=== PATIENT | female | born 1970 | race African-American/Black ===

== ENCOUNTER 2016-06-02 13:01 | Inpatient (IN) ==
--- NOTE | 2016-06-02 16:14 | Emergency Department Note ---
Arrival - Arrival Chief Complaint: Shortness of Breath Stated Complaint: Chest Pain,SOB ED Nursing Triage Note: c/o having shortness of breath while at her aunts ., states she got hot and does not remeber what happen, denies eating anything today , + chest pain ., EKG obtained at time of triage Mode of Arrival: Wheelchair Limitations: No Limitations Source: Patient Time Seen by Provider: 06/02/16 16:02 - History of Present Illness HPI Narrative: The patient complains of having palpitations, chest pain, shortness of breath and syncope while at a earlier today. She was walking back to her car when she began to have palpitations and felt hot and weak. She was also seeing spots. She denies nausea or diaphoresis. She sat down in a chair and does not remember what happened next. At this time she feels back to normal except for a slight right parasternal chest pressure. The patient was seen at an immediate care clinic last week and diagnosed with a sinus infection. At that time she was noticed to have some type of cardiac abnormality. It is not clear whether she was having arrhythmia or murmur. She was to be set up to see cardiology but has not seen them yet. Date of Last Menstrual Period: 1 week ago Allergies/Adverse Reactions: Allergies Allergy/AdvReac Type Severity Reaction Status Date / Time No Known Allergies Allergy Unverified 06/02/16 13:05 Home Medications: Home Medications Medication Instructions Recorded Confirmed Type No Known Home Medications [No 06/02/16 06/02/16 History Known Home Medications] Review of System - Review of System 12 point system: reviewed and no additional remarkable complaints except as stated - Review of System Constitutional: Present: weakness. Absent: diaphoresis, fever Eyes: Present: vision change Head/Ears/Nose/Throat: Absent: nasal drainage, sore throat Respiratory: Absent: cough Cardiovascular: Present: chest pain, palpitations, dyspnea on exertion. Absent : orthopnea, edema Gastrointestinal: Absent: abdominal pain, nausea, vomiting Medical,Surgical,& Family Hx - Medical History Medical History: noncontributory - Surgical History Surgical History: noncontributory - Family History Family History: noncontributory - Social History Smoking Status: Never smoker Frequency of Alcohol Use: None Type of Drug Use: None Exam Physical Examination: GENERAL: Alert. No acute distress. HEENT: Normocephalic and atraumatic. There is no nasal drainage. No pharyngeal erythema or exudate. NECK: Normal inspection. Supple. No lymphadenopathy or meningismus. LUNGS: No respiratory distress. Clear to auscultation bilaterally, no wheezes, rales or rhonchi. HEART: Regular rate and rhythm. There is a 3/6 systolic murmur. ABDOMEN: Soft, nontender and nondistended with normoactive bowel sounds. BACK: Normal inspection. SKIN: Color normal. Warm and dry. EXTREMITIES: Nontender. Normal range of motion. No pedal edema. NEUROLOGICAL/PSYCHIATRIC: Alert and oriented -3 with normal mood and affect. Cranial nerves normal. No motor or sensory deficit. Vital Signs: Vital Signs Temperature 98.0 F 06/02/16 14:58 Pulse Rate 74 06/02/16 14:58 Respiratory Rate 16 06/02/16 14:58 Blood Pressure 129/69 06/02/16 14:58 O2 Sat by Pulse Oximetry 100 06/02/16 14:58 Course - Reevaluation(s) Reevaluation #1: The patient has remained stable here in the ER. I suspect her symptoms are mostly due to her anemia, however, she may have a cardiac factor as well. Her EKG shows an ectopic atrial rhythm and she does have a 3/6 murmur. The cause for her anemia is unknown. She has had this in the past. She does admit to a few dark stools last week but it is not clear whether this was melena or not. Her Hemoccult now is negative. She is going to need blood and cardiology consultation. Discussed the patient with the hospitalist service who will see her and admit. Time: 17:56 Results - Labs CBC & BMP: 06/02/16 16:38 06/02/16 16:38 Lab Results: I have reviewed the patients labs Labs: Laboratory Tests 06/02/16 06/02/16 06/02/16 16:38 16:38 16:38 INR 1.0 CK-MB (CK-2) < 1.0 Troponin I < 0.015 B-Natriuretic Peptide 56 - Impressions EKG shows an ectopic atrial rhythm at 90. Chest x-ray shows mild cardiomegaly. CT of the head shows no acute intracranial abnormality. Disposition Clinical Impression: Anemia, Syncope, Palpitations Case discussed with: patient, patient's family Disposition: Still a Patient Condition: Stable Time of Disposition: 17:59
[2016-06-02 16:45] LABS: Eosinophils # 0.1 10*3/uL (0.0-0.87); Eosinophils % 0.7 % (0.00-10.9); Hematocrit 18.2 VOL% (35.7-47.0); Immature Granulocytes % 0.5 %; Immature Granulocytes Absolute 0.05 #; Lymphocytes # 2.9 10*3/uL (1.4-4.0); Lymphocytes % 28.7 % (21.3-54.2); Mean Corpuscular HGB Conc 24.2 GM/DL (32-36); Mean Corpuscular Hemoglobin 14 PG (27-34); Mean Corpuscular Volume 56.9 FL (87-102); Monocytes # 0.7 10*3/uL (0.11-0.8); Monocytes % 7.4 % (1.7-12.7); NRBC # 0.02 10*3/uL; Neutrophils # 6.3 10*3/uL (1.4-7.4); Neutrophils % 62.7 % (38.7-73.9); Platelet Count 388 T/CUMM (130-400); Red Cell Distribution Width 23.3 % (9.3-17.3); White Blood Count 10.1 T/CUMM (4-12)
--- NOTE | 2016-06-02 16:52 | CT Report ---
History: Syncope Date: 06/02/2016 Study: CT head without contrast Comparison exam: No previous head CT available Transaxial CT sections were obtained through the head without IV contrast. Total DLP measures 1012.1 mGy*cm. This CT exam was performed using one or more the following dose reduction techniques: Automated exposure control, adjustment of the MA and/or KV according to patient size, or use of iterative reconstruction technique. The ventricles are midline in position without evidence of hydrocephalus. There is no mass or parenchymal hemorrhage. There is no gross CT evidence of acute cortical stroke. There is no extra-axial hematoma. There is no acute abnormality of the calvarium. The partially visualized paranasal sinuses and mastoid air cells are clear. Impression: Negative noncontrast CT brain PROCEDURE INTERPRETED AT [facility] Final Report Signed by: Dr. Adriane Gilbert
[2016-06-02 16:55] LABS: PT Patient Result 10.7 SECS; Partial Thromboplastin Time 21.1 SECS (0-40)
[2016-06-02 16:56] LABS: Hemoglobin 4.4 GM/DL (12.0-16.0)
[2016-06-02 17:12] LABS: Alanine Aminotransferase < 9 U/L (13-56); Albumin 3.6 G/DL (3.4-5.0); Alkaline Phosphatase 54 U/L (45-117); Aspartate Amino Transferase 7 U/L (0-37); Blood Urea Nitrogen 9 MG/DL (7-18); Calcium 8.5 MG/DL (8.5-10.1); Glucose 88 MG/DL (74-106); Osmolality,Calculated 278.3 MOS/KG (273-304); Potassium 3.8 MMOL/L (3.5-5.1); Sodium 141 MMOL/L (136-145); Total Protein 7.5 G/DL (6.4-8.3); Troponin I Only < 0.015 NG/ML (0.00-0.045)
--- NOTE | 2016-06-02 17:49 | XRay Report ---
History: Chest pain. Dyspnea Date: 06/02/2016 Study: Chest x-ray PA and lateral Comparison exam: No previous chest x-ray currently available There is mild cardiomegaly. There is no mediastinal mass. The pulmonary vasculature is not engorged. The lungs are well-expanded. There is no pleural effusion. There is no confluent infiltrate to suggest pneumonia. Osseous structures are unremarkable. Impression: Cardiomegaly without overt CHF. No definite acute process PROCEDURE INTERPRETED AT [facility]OLOG[facility] Final Report Signed by: Dr. Adriane Gilbert
[2016-06-02 18:16] LABS: Hypochromasia 3+; Platelet Estimate Normal
[2016-06-02 18:17] LABS: Microcytosis 3+; Target Cells Few
[2016-06-02 18:18] LABS: Tear Drop Cells Few
[2016-06-02 18:19] LABS: Ovalocytes Few
[2016-06-02] MEDS ORDERED: ACETAMINOPHEN 325 MG TABLET PO PRN ×2 (19:00)
[2016-06-02] MEDS ORDERED: ONDANSETRON 4 MG/2 ML VIAL IV PRN (19:00)
[2016-06-02] MEDS ORDERED: MORPHINE 2 MG/1 ML SYRINGE IV PRN (19:00)
[2016-06-02] MEDS ORDERED: DOCUSATE SODIUM 100 MG CAPSULE PO PRN (19:00)
[2016-06-02] MEDS ORDERED: PROMETHAZINE 25 MG TABLET PO PRN (19:00)
[2016-06-02] MEDS ORDERED: guaiFENesin/DM ER 600-30 MG TABLET PO PRN (19:00)
[2016-06-02] MEDS ORDERED: diphenhydrAMINE CAP 25 MG CAPSULE PO PRN (19:00)
[2016-06-02] MEDS ORDERED: SODIUM CHLORIDE 0.9% 250 ML IV PRN ×2 (19:07→22:15)
--- NOTE | 2016-06-02 19:18 | Hospitalist History & Physical ---
Assessment and Plan - Time spent with patient Time spent with patient: Greater than 30 minutes (1) Anemia Status: Acute Assessment and plan: Ms. Sheridan is a pleasant 45-year-old -[place] female with no medical history admitted through the ED with severe symptomatic anemia. Patient has had syncopal episode and palpitations. She is also found to have a moderate murmur that was found a week ago and has not had cardiology follow-up. We will go ahead and order 2 units of PRBCs and transfuse, echo, cardiology consult, GI consult for anemia of unknown origin. Patient is complaining of increased urination and suprapubic pelvic pain. UA is pending. Patient's case has been discussed with Dr. Fraser who is covering for Dr. albright and further recommendations to follow. Current Visit: Yes (2) Syncope Status: Acute Current Visit: Yes (3) Palpitations Status: Acute Current Visit: Yes History of Present Illness Chief complaint: Palpitations, fainting History of present illness: Ms. Alford is a 45 year old female with no medical history presenting to the ED after she developed some palpitations and syncopal episode this afternoon. Patient states she was sick about a week ago with a sore throat and went to the [facility] clinic where she was told she had sinusitis. She was given some medicine and she just finished her course of those. She was also told she had a murmur at that time and they work and is set her up with a loss prevention consultant. The clinic has not called her back yet with an appointment. She was at her aunt's today when she all of a sudden became weak and dizzy, her heart started racing, and she passed out. Patient states she does not remember anything but people stated that she was mumbling incoherently. Patient feels a little better now and her only complaint seems to be of some mild lower abdominal pain. She states she is also been peeing a lot in the last week but denies burning or urgency. Upon exam she is afebrile and her vital signs are stable. Her white count is normal but her H&H is 4.4/18.2. She denies any vomiting of blood but she does state she had a dark tarry stool about a week ago. She is heme- negative in the ED. Her UA is pending. Patient's case was discussed with the ED physician Dr. Jurado and Dr. Fraser the attending hospitalist, and it was agreed patient would be admitted for blood transfusion, cardiology and GI consults. Home Medications Medication Instructions Recorded Confirmed Type No Known Home Medications [No 06/02/16 06/02/16 History Known Home Medications] Allergies Allergy/AdvReac Type Severity Reaction Status Date / Time No Known Allergies Allergy Unverified 06/02/16 13:05 Medical,Surgical,& Family Hx - Medical History Cardio: No history of: Cardiovascular Problems Endocrine: No history of: Diabetes Mellitus (IDDM) Genitourinary: No history of: Recurring Urinary Tract Infections Hematology: No history of: Bleeding Problems - Surgical History Cardiac Surgeries: Patient Denies: Cardiac Surgery Reproductive Surgeries: Patient denies;: Breast Surgery - Family History Family History: Reports;: Family Hypertension - Social History Smoking Status: Never smoker Frequency of Alcohol Use: None Type of Drug Use: None Functional capacity: independent ambulation Review of systems: A complete 10 system review of systems was obtained and it negatives and positives are per HPI Exam - Constitutional Exam: Constitutional System: No distress. No tremulousness. Head: Normocephalic, atraumatic. Ears, Nose and Throat System: No evidence of Otitis or Mastoiditis. No epistaxis or discharge Eyes System: Pupils equal, round, and reactive. Extraocular muscles intact. Neck: Supple, without adenopathy, No jugular venous distention. No thyromegaly, neck mass, or prior surgery apparent. Respiratory System: Chest clear to auscultation. Cardiovascular System: Heart with regular rate and rhythm. iii/vi murmur. GI System: Abdomen soft, mildly tender in suprapubic region. Normo active bowel sounds present. Musculoskeletal System: limbs with no pedal edema. Full distal pulses. Neurological System: No discernable sensory deficit. No aphasia Psychiatric System: Conversation is rational Results - Labs CBC & BMP: 06/02/16 16:38 06/02/16 16:38 Lab Results: I have reviewed the past 24 hour labs - Impressions EKG in the ED shows an abnormal junctional rhythm - Diagnostic Findings Procedure: Chest x-ray: report reviewed by me (Cardiomegaly without overt CHF), CT: report reviewed by me (CT the head is negative) Quality Measures - VTE Contraindication to Pharmacological VTE Prophylaxis: High Risk of Bleeding
[2016-06-02] MEDS: SODIUM CHLORIDE 0.9% 1,000 ML IV SCH (22:09)
[2016-06-03] MEDS: SODIUM CHLORIDE 0.9% 1,000 ML IV SCH ×3 (04:20→21:00)
[2016-06-03 06:02] LABS: Basophils % 0.1 % (0.0-0.8); Eosinophils # 0.1 10*3/uL (0.0-0.87); Eosinophils % 1.1 % (0.00-10.9); Hematocrit 21.4 VOL% (35.7-47.0); Immature Granulocytes % 0.3 %; Immature Granulocytes Absolute 0.02 #; Lymphocytes # 2.6 10*3/uL (1.4-4.0); Mean Corpuscular HGB Conc 27.1 GM/DL (32-36); Mean Corpuscular Hemoglobin 17 PG (27-34); Mean Corpuscular Volume 63.1 FL (87-102); Monocytes # 0.6 10*3/uL (0.11-0.8); Monocytes % 8.3 % (1.7-12.7); Neutrophils # 3.8 10*3/uL (1.4-7.4); Neutrophils % 53.2 % (38.7-73.9); Platelet Count 305 T/CUMM (130-400); Red Blood Count 3.39 MC/CUMM (3.8-5.5); Red Cell Distribution Width 30.5 % (9.3-17.3); White Blood Count 7.1 T/CUMM (4-12)
[2016-06-03 06:10] LABS: Hemoglobin 5.8 GM/DL (12.0-16.0)
[2016-06-03 06:37] LABS: Calcium 8.5 MG/DL (8.5-10.1); Osmolality,Calculated 280.1 MOS/KG (273-304); Potassium 4.2 MMOL/L (3.5-5.1)
[2016-06-03 07:08] LABS: Hypochromasia 2+; Microcytosis 2+; Platelet Estimate Normal
[2016-06-03 07:09] LABS: Elliptocytes 1+; Spherocytes Slight; Target Cells Slight
[2016-06-03 07:10] LABS: Tear Drop Cells Slight
[2016-06-03] MEDS ORDERED: SODIUM CHLORIDE 0.9% 250 ML IV PRN (07:48)
[2016-06-03 08:12] LABS: Amorphous Crystals,Urine Occasional /HPF (Few); Apearance,Urine Slightly Hazy (Clear); Bacteria,Urine Occasional /HPF (Few); Bilirubin,Urine Negative (Negative); Blood, Urine Negative (Negative); Glucose,Urine (UA) Negative (Negative); Ketones,Urine Negative (Negative); Mucus,Urine Occasional /LPF (Occasional); Nitrite,Urine Negative (Negative); Protein,Urine Negative; RBC,Urine <1 /HPF (0-4); Squamous Epithelial Cell,Urine Occasional /HPF (0-10); Urine Color Yellow (Yellow); Urine Specific Gravity 1.016 (1.001-1.035); Urine Urobilinogen < 2.0 EU/DL (0.2-1.0); WBC,Urine 4 /HPF (0-6)
--- NOTE | 2016-06-03 08:38 | Gastrointestinal Consult Note ---
Assessment and Plan - Time spent with patient Time spent with patient: Greater than 30 minutes (1) Anemia Status: Acute Current Visit: Yes (2) Other specified counseling Status: Acute Current Visit: Yes History of Present Illness History of present illness: Ms. Alford is a 45 year old female Home Medications Medication Instructions Recorded Confirmed Type No Known Home Medications [No 06/02/16 06/02/16 History Known Home Medications] Allergies Allergy/AdvReac Type Severity Reaction Status Date / Time No Known Allergies Allergy Unverified 06/02/16 13:05 Medical,Surgical,& Family Hx - Medical History Cardio: History of: PVD, Cardiovascular Problems (heart murmur) Endocrine: No history of: Diabetes Mellitus (IDDM) Genitourinary: No history of: Recurring Urinary Tract Infections Hematology: History of: Anemia No history of: Bleeding Problems - Surgical History Cardiac Surgeries: Patient Denies: Cardiac Surgery Reproductive Surgeries: Patient denies;: Breast Surgery - Family History Family History: Reports;: Family Diabetes (mother), Family Hypertension, Family Stroke (mother) - Social History Smoking Status: Never smoker Frequency of Alcohol Use: None Type of Drug Use: None Exam - Constitutional Vitals: Period Temp Pulse Resp BP Sys/Page Pulse Ox Last 24 Hr 98.3 F-99.3 F 74-93 16-20 109-135/53-75 96-100 Results - Labs CBC & BMP: 06/03/16 05:56 06/03/16 05:56 Quality Measures - VTE Contraindication to Pharmacological VTE Prophylaxis: High Risk of Bleeding Note Addendum: PLEASE NOTE -- automatic citation of patient information is unavoidable in this electronic note. I have made a reasonable effort to review the information cited , but it is not a part of my evaluation, impression, or recommendation unless specifically discussed in the dictated text that follows. As well, voice recognition software was used in the creation of this clinical note. Reasonable effort was made to identify and correct gross errors. Despite proofreading, errors in metal dealer may be present, including nonsense verbiage at times. If you encounter such an error, please contact me at for discussion and correction. -- Curtis Chief complaint: anemia History of present illness: This is a new patient, a 45-year-old female seen by consultation for evaluation of symptomatic anemia. The patient is admitted to the hospitalist service under the care of Dr. Espinoza with a primary diagnosis of symptomatic anemia. The patient was admitted through the emergency department today were she was brought after a syncopal episode. She reports a recent diagnosis of sinusitis and was treated with antibiotic at that time. She was at a yesterday when she became weak and dizzy and subsequently lost consciousness. She woke up in the emergency department. The patient denies overt gastrointestinal blood loss. She has been eating and drinking normally with no difficulty in that regard. Her bowel pattern is normal. She is unaware of any prior history of blood-borne illness. She has not had prior peptic ulcer disease or gastrointestinal disease generally. She is unaware family history of gastrointestinal cancer. She does report that she has been having abnormally heavy menstrual cycles for some time, at least five years. On average, she uses an entire box of sanitary pads during a 4-5 day cycle. She reports that the bleeding "is like water running out." Her most recent cycle was last week but was less heavy than usual. She has not had a routine gynecological exam for several years. Patient denies fever, chills, night sweats, rigors, headache, neck pain, visual changes, redness of the eyes, dysphagia, odynophagia, difficulty chewing, chest pain, weight loss, nausea, vomiting, regurgitation, hematemesis, diarrhea, hematochezia, melena, proctalgia, constipation, change in bowel pattern generally, dysuria, skin changes, temperature regulation issues, flushing, musculoskeletal pain, mental status change, numbness/weakness in the extremities , yellowing of the eyes/skin, cutaneous eruptions, family history of gastrointestinal cancer and colon polyps, and other complaints in general. Review of systems: 12 point review of systems was negative except as documented above. Outpatient medications: none Inpatient medications: Tylenol, Benadryl, Colace, Mucinex, [place], morphine, Zofran, Protonix, Phenergen, normal saline infusion Past Medical History: none Social history: negative tobacco. Negative alcohol Family history: no gastrointestinal cancers Physical examination: Vital Signs: Current vital signs reviewed and documented above. General Appearance: well-appearing. Not acutely ill. Head: Normocephalic. Neck: Palpation of the neck revealed no abnormalities. Eyes: No scleral icterus. No scleral injection. No conjunctival pallor. Oral Cavity: Odor of breath was normal. No drooling was observed. Lips showed no abnormalities. Floor of the mouth showed no abnormalities. Pharynx: Oropharynx was normal. Lungs: Respiration rhythm and depth was normal. Cardiovascular: Heart rate and rhythm were normal. No murmurs were appreciated. Abdomen: abdomen was not distended. Abdominal palpation revealed a firm mass, likely involving the uterus, left-sided and extending from the pelvis up to just below the costal margin. Mass was not tender. Ascites was not discovered. Abdominal auscultation revealed positive bowel sounds. Musculoskeletal System: Musculoskeletal system was grossly normal. Neurological: level of consciousness was normal. Speech was normal. Skin: General appearance was normal. Color and pigmentation were normal. No skin lesions. Laboratory: white blood count 7.1, hemoglobin 5.8, hematocrit 21.4, platelets 305, MCV 57, INR 1.0, ALT nine, AST seven, total bilirubin 0.4, alkaline phosphatase 54, albumin 3.6 Radiology: pelvic ultrasound with large uterine fibroid apparent (official read is pending) Impressions: 1. Anemia -- the differential diagnosis includes abnormal uterine bleeding, peptic ulcer, gastritis/esophagitis generally, arteriovenous malformation, gastric or colonic cancers, and many non-gastrointestinal etiologies. I agree with recent blood transfusion. I recommend continued aggressive volume management with monitoring of blood counts and further transfusion as indicated. I recommend the addition of a proton pump inhibitor. We have discussed the possibility of both upper endoscopy and colonoscopy but, given the ultrasound finding of large uterine fibroids and the patient's report of abnormally heavy uterine bleeding, I think it more likely this is a gynecologic issue. I will reserve endoscopic evaluation for now in favor of gynecology evaluation. If there is no etiologic finding in that regard, we should readdress the issue of endoscopic evaluation. 2. Other specified counseling -- The patient was seen for greater than 30 minutes. The patient was counseled for greater than 50% of this time regarding differential diagnosis, likely diagnosis, diagnostic and therapeutic alternatives, risks/benefits/alternatives of medications and procedures, and plan of care generally. The patient expressed understanding and wishes to proceed. Recommendations: -- continued volume resuscitation -- continued monitoring of hemoglobin and hematocrit with further transfusion as indicated -- proton pump inhibitor -- gynecology evaluation -- consider diagnostic upper endoscopy and colonoscopy if no etiologic gynecologic finding -- thank you for this consultation. Dr. Wright will assume G.I. care for this patient tomorrow.
--- NOTE | 2016-06-03 08:41 | EKG Report ---
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
[2016-06-03] MEDS: PANTOPRAZOLE 40 MG TABLET PO SCH (10:05)
--- NOTE | 2016-06-03 10:08 | EKG Report ---
Stationary ECG Study 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
--- NOTE | 2016-06-03 10:45 | Hospitalist Progress Note ---
Assessment and Plan - Time spent with patient Time spent with patient: Greater than 30 minutes (1) Menorrhagia Status: Acute Assessment and plan: She admits to menorrhagia, therefore may have a uterine fibroid. Sent for pelvic ultrasound, reviewed results and probably consult [facility]GER at that point. Current Visit: Yes (2) Anemia Status: Acute Assessment and plan: Severe symptomatic microcytic anemia, because of her microcytosis this is likely chronic condition which only recently became symptomatic. We do not have reticulocyte count or anemia profile to evaluate her iron bone marrow status. I suspect this is related to menorrhagia. She may have uterine fibroids There was concern about possible hemolytic process, but LDH and haptoglobin are within normal limits and therefore makes an acute hemolytic process unlikely. We will transfuse another 2 unit of PRBC monitor H&H. We will obtain anemia profile plus reticulocyte count even though this may be affected by the fact that she has been transfused already GI losses are also a possibility, GI has been consulted. Avoid any heparin on anticoagulant from now. Use SCD hose for DVT prophylaxis Current Visit: Yes (3) Syncope Status: Acute Assessment and plan: Syncope may have been due to severe anemia. She has not had any repeat episodes since admission. Monitor vitals closely. Current Visit: Yes (4) Palpitations Status: Acute Assessment and plan: Palpitation and probably related to severe symptomatic anemia. EKG sinus rhythm with LVH, probably has underlying chronic hypertension. Continue telemetry. Cardiology has already been consulted. Follow-up echocardiogram Current Visit: Yes Hospitalist: Subjective Interval history: 45-year-old lady who was admitted with severe symptomatic anemia, she is status post 2 units of PRBC with appropriate rise in hematocrit. I interviewed her this morning, and she does admit to heavy menstrual losses over a long time now. Never been evaluated by [facility] UP [facility] CHARGER abdominal ultrasound. Recently over the last week reported dark stools. She reports mild chest discomfort. No fever Exam - Constitutional Vitals: Period Temp Pulse Resp BP Sys/Page Pulse Ox Last 24 Hr 98.0 F-99.3 F 61-93 16-20 109-136/53-80 96-100 General appearance: no acute distress, over weight - Head Head exam: Present: normal inspection, normocephalic, atraumatic - Eye Eye exam: Present: other (Conjunctivae pallor) Pupils: Present: TAMELA, normal accommodation - ENT ENT exam: Present: normal external ear exam - Neck Neck exam: Present: normal inspection. Absent: meningismus, tenderness - Respiratory Respiratory exam: Present: clear to auscultation bilaterally. Absent: rales, rhonchi - Cardiovascular Cardiovascular exam: Present: regular rate and rhythm. Absent: JVD - GI/Abdominal GI/Abdominal exam: Present: normal bowel sounds, soft. Absent: ascites, tenderness - Extremities Exam Extremities exam: Present: full ROM. Absent: edema - Neurological Exam Neurological exam: Present: alert, oriented X3, normal gait - Psychiatric Psychiatric exam: Present: normal affect, normal mood - Skin Skin exam: Present: normal color, warm, dry Results - Labs CBC & BMP: 06/03/16 05:56 06/03/16 05:56 Lab Results: I have reviewed the past 24 hour labs Quality Measures - VTE Contraindication to Pharmacological VTE Prophylaxis: High Risk of Bleeding
[2016-06-03] MEDS ORDERED: BISACODYL 5 MG TABLET PO ONE (12:00)
--- NOTE | 2016-06-03 12:00 | ECHO Report ---
Daja Alford 06/03/2016 Exam Date: 10:13 Referring Physician: Roberta Rivera Technologist: CECI Age: 45 Ht (in): 66 Wt (lb): 260 FExam Location: [facility] Gender: Echo [id number]: Syncope and collapse, Anemia, PalpitIndications:ations, Cardiac murmur, unspecified BP: 135 / 75 HR: 71 SinusRhythm: GoodTechnical Quality: IMPRESSIONS 1. The left ventricle is normal size and systolic function with ejection fraction 60%. At worst there is mild concentric left ventricular hypertrophy. 2. Right ventricle is normal size and systolic function. 3. At worse mildly dilated right and left atrium. 4. Mitral valve anatomically normal with trace to mild regurgitation. 5. Aortic valve is anatomically normal and probably no stenosis. 6. Trace to mild tricuspid regurgitation. 7. At worst moderately elevated right-sided pressures MEASUREMENTS (Male / Female) Normal Values 2D ECHO LV Diastolic Diameter PLAX 4.7 cm 4.2 - 5.9 / 3.9 - 5.3 cm LV Systolic Diameter PLAX 3.2 cm LV Fractional Shortening PLAX 32.0 % IVS Diastolic Thickness 1.1 cm 0.6 - 1.0 / 0.6 - 0.9 cm LVPW Diastolic Thickness 1.2 cm 0.6 - 1.0 / 0.6 - 0.9 cm RV Internal Dim ED PLAX 3.4 cm Aortic Root Diameter 3.1 cm LA Systolic Diameter LX 4.8 cm 3.0 - 4.0 / 2.7 - 3.8 cm DOPPLER TR Peak Velocity 331.0 cm/s TR Peak Gradient 43.8 mmHg FINDINGS Left Ventricle Normal left ventricular cavity size. Mild left ventricular hypertrophy. Left ventricular ejection fraction is estimated at 60 %. Right Ventricle The right ventricle is normal in size and function. Right Atrium Mildly increased right atrial size. Left Atrium Mildly increased left atrial size. Mitral Valve Morphologically normal mitral valve. Trace to mild mitral valve regurgitation. Aortic Valve Trileaflet aortic valve with normal motion. Mean gradient 14 mmHg, SHYLA 1.8 cm. No aortic valve regurgitation. There is no real stenosis present anatomically. Tricuspid Valve Morphologically normal tricuspid valve. Trace to mild tricuspid valve regurgitation. Tricuspid regurgitation velocities suggest a PAP of 54 mmHg. Pulmonic Valve Morphologically normal pulmonic valve without significant stenosis. There is no pulmonic regurgitation. Pericardium Normal pericardium without effusion. Aorta Normal ascending aorta dimension. Killian Eaton MD (Electronically Signed) 03 June 2016 Final Date: 11:59
--- NOTE | 2016-06-03 12:10 | Cardiology Consult Note ---
Assessment and Plan (1) Near syncope Status: Acute Assessment and plan: Probably secondary to anemia and being hot etc. Will check holter. can have tratment for anemia. Can follow up also as out patient. Current Visit: Yes (2) Anemia Status: Acute Assessment and plan: Being evaluated by primary service Current Visit: Yes (3) Menorrhagia Status: Acute Assessment and plan: Apparantly with large fibroid. Current Visit: Yes (4) Palpitations Status: Acute Assessment and plan: Suspect this was sinus tachycardia but may be underlying atrial tachycardia exacerbated by fely anemia. Current Visit: Yes History of Present Illness - Data of Consult Patient: new to practice Consult date: 06/03/16 Requesting Physician: Frank Fraser - Consult Narrative Reason for consult: palpitations syncope History of present illness: Ms. Alford is a 45 year old female who is needed the hospital after having a near syncopal episode. The patient gives a history having just exertion for 2 months is been slightly progressive. She has systolic cancer breath. She was told about a week ago that she had a heart murmur while she was being seen by a physician for sinus problems. Yesterday she was at a . She states it was hot outside is beginning to get very hot. She walked to the car and going up and healed during which time her heart GOING fast possibly fluttering. She got to the car but didn't have the [place] and it was hot in the car. [facility] and still felt like her heart was going faster fluttering. She did feel short of breath. Everything felt to be "going black" and issue we got back into the [facility] she was told that she was mumbling by people there and she doesn't remember a lot about this time. She denies though losing consciousness. She denies being nauseated or having other GI complaints. She had no chest pain. She has been anemic in the past. She's had heavy periods/menorrhagia in his been told this admission that she has a significant large fibroid. Chest x-ray per report was unremarkable. ECG with sinus rhythm. Her echocardiogram with normal left ventricular size systolic function. Right and left atrium may be mildly dilated. There was minimal tricuspid and mitral valve regurgitation certainly does not appear significant. Aortic valve really does not appear to have stenosis. The patient denies any prior cardiac history or cardiac testing. She has no primary family history of heart disease. There are some things and uncles with heart trouble. She does not smoke. She does not carry a history of hypertension, diabetes or dyslipidemia. Since admission her rhythm is been sinus without dysrhythmias. CC: Mario Espinoza MD - Home Medications and Allergies Home Medications: Home Medications Medication Instructions Recorded Confirmed Type No Known Home Medications [No 06/02/16 06/02/16 History Known Home Medications] Allergies/Adverse Reactions: Allergies Allergy/AdvReac Type Severity Reaction Status Date / Time No Known Allergies Allergy Unverified 06/02/16 13:05 Review of systems: Constitutional: Denies anorexia, chills, fatigue, fever, frequent falls, night sweats, weight gain, weight loss Eyes: Denies visual changes or loss of vision Ears: Denies decreased hearing, vertigo Nose, mouth and throat: Denies dysphagia, epistaxis, headaches, neck pain, tongue swelling, Neck: Denies thyromegaly or masses. No stiffness. Cardiovascular: as per HPI Respiratory: Denies cough, dyspnea, hemoptysis, dyspnea on exertion, wheezing, snoring Gastrointestinal: Denies abdominal pain, constipation, dyspepsia, dysphagia, hematemesis, hematochezia, melena, nausea, vomiting Genitourinary: Denies dysuria, hematuria, nocturia Musculoskeletal: Denies arthralgias, joint swelling, muscle weakness, myalgias Neurological: denies abnormal gait, abnormal speech, confusion, convulsions, frequent falls, headaches, memory loss, syncope Psychiatric: Denies anxiety, confusion, depression Endocrine: Denies cold intolerance, fatigue, heat intolerance Hematologic/Lymphatic: Denies easy bleeding, easy bruising Dermatologic: Denies Rash, itching, shingles Other than her present illness for review of systems unremarkable. Medical,Surgical,& Family Hx - Medical History Cardio: History of: PVD, Cardiovascular Problems (heart murmur) Endocrine: No history of: Diabetes Mellitus (IDDM) Genitourinary: No history of: Recurring Urinary Tract Infections Hematology: History of: Anemia No history of: Bleeding Problems - Surgical History Cardiac Surgeries: Patient Denies: Cardiac Surgery Reproductive Surgeries: Patient denies;: Breast Surgery - Family History Family History: Reports;: Family Diabetes (mother), Family Hypertension, Family Stroke (mother) - Social History Smoking Status: Never smoker Frequency of Alcohol Use: None Type of Drug Use: None Physical Examination Vital Signs Temp Pulse Resp BP Pulse Ox 98.1 F 93 H 16 119/89 100 06/02/16 13:03 06/02/16 13:03 06/02/16 13:03 06/02/16 13:03 06/02/16 13:03 Other: General appearance: Overweight, no acute distress Head exam: normal inspection, atraumatic Eye exam: Pupils are equal and reactive. EOMI. There is no trauma. Ear exam: Anatomically normal. Normal auditory acuity to conversation. Oral exam: No significant oral lesions. Neck exam: normal inspection no JVD. No carotid bruit. Trachea is in midline. Respiratory exam: clear to auscultation bilaterally posteriorly and anteriorly with good air movement. No rales, rhonchi or wheezes. Cardiovascular exam: regular rate and rhythm, with systolic murmur heard at the left upper sternal border and apex. No precordial lift. No bruits over the major arteries. Chest wall/torso: Anatomically normal. No tenderness, deformity Peripheral Pulses: 2 to 3 + throughout. GI/Abdominal exam: normal bowel sounds, soft and nontender, no abdominal bruits or pulsatile masses. Musculoskeletal/Extremities exam: normal inspection without edema or cyanosis. No deformities or trauma. Neurological exam: alert, oriented X3. There is no gross neurologic deficits. Psychiatric exam: normal affect, normal mood. Cognitive function is grossly intact. Skin exam: normal color, warm. No rashes or other skin lesions. Result/EKG - Labs CBC & BMP: 06/03/16 05:56 06/03/16 05:56 Lab Results: I have reviewed the past 24 hour labs Labs: Laboratory Results - last 24 hr 06/02/16 06/02/16 06/03/16 19:07 19:29 05:50 WBC RBC Hgb Hct MCV MCH MCHC RDW Plt Count MPV Neut % (Auto) Lymph % (Auto) [place] % (Auto) Eos % (Auto) Baso % (Auto) Neut # (Auto) Lymph # (Auto) [place] # (Auto) Eos # (Auto) Baso # (Auto) Immature Gran % Nucleated RBC % Immature Gran # Nucleated RBCs # Platelet Estimate Hypochromasia Microcytosis Spherocytes Target Cells Tear Drop Cells Elliptocytes Haptoglobin Sodium Potassium Chloride Carbon Dioxide Anion Gap BUN Creatinine GFR Calculation BUN/Creatinine Ratio Glucose Calculated Osmolality Calcium Magnesium Lactate Dehydrogenase TSH 3rd Generation 3.510 Urine Color Urine Appearance Urine pH Ur Specific [place] Urine Protein Urine Glucose (UA) Urine Ketones Urine Blood Urine Nitrate Urine Bilirubin Urine Urobilinogen Urine Leukocytes Urine RBC Urine WBC Ur Squamous Epith Cells Amorphous Crystals Urine Bacteria Urine Mucus Ur Culture Indicated? Blood Type A POSITIVE A POSITIVE Antibody Screen Negative Crossmatch See Detail Blood Bank Comment 06/03/16 06/03/16 06/03/16 05:50 05:56 05:56 WBC 7.1 RBC 3.39 L Hgb 5.8 L* D Hct 21.4 L MCV 63.1 L MCH 17 L MCHC 27.1 L RDW 30.5 H Plt Count 305 D MPV 9.0 L Neut % (Auto) 53.2 Lymph % (Auto) 37.0 [place] % (Auto) 8.3 Eos % (Auto) 1.1 Baso % (Auto) 0.1 Neut # (Auto) 3.8 Lymph # (Auto) 2.6 [place] # (Auto) 0.6 Eos # (Auto) 0.1 Baso # (Auto) 0.0 Immature Gran % 0.3 Nucleated RBC % 0.0 Immature Gran # 0.02 Nucleated RBCs # 0.00 Platelet Estimate Normal Hypochromasia 2+ Microcytosis 2+ Spherocytes Slight Target Cells Slight Tear Drop Cells Slight Elliptocytes 1+ Haptoglobin 110.0 Sodium Potassium Chloride Carbon Dioxide Anion Gap BUN Creatinine GFR Calculation BUN/Creatinine Ratio Glucose Calculated Osmolality Calcium Magnesium 2.0 Lactate Dehydrogenase 117 TSH 3rd Generation Urine Color Urine Appearance Urine pH Ur Specific [place] Urine Protein Urine Glucose (UA) Urine Ketones Urine Blood Urine Nitrate Urine Bilirubin Urine Urobilinogen Urine Leukocytes Urine RBC Urine WBC Ur Squamous Epith Cells Amorphous Crystals Urine Bacteria Urine Mucus Ur Culture Indicated? Blood Type Antibody Screen Crossmatch Blood Bank Comment 06/03/16 06/03/16 06/03/16 05:56 06:00 07:48 WBC RBC Hgb Hct MCV MCH MCHC RDW Plt Count MPV Neut % (Auto) Lymph % (Auto) [place] % (Auto) Eos % (Auto) Baso % (Auto) Neut # (Auto) Lymph # (Auto) [place] # (Auto) Eos # (Auto) Baso # (Auto) Immature Gran % Nucleated RBC % Immature Gran # Nucleated RBCs # Platelet Estimate Hypochromasia Microcytosis Spherocytes Target Cells Tear Drop Cells Elliptocytes Haptoglobin Sodium 142 Potassium 4.2 Chloride 106 Carbon Dioxide 29 Anion Gap 11.2 BUN 8 Creatinine 0.70 GFR Calculation 373 BUN/Creatinine Ratio 11.00 Glucose 96 Calculated Osmolality 280.1 Calcium 8.5 Magnesium Lactate Dehydrogenase TSH 3rd Generation Urine Color Yellow Urine Appearance Slightly hazy Urine pH 7.0 Ur Specific [place] 1.016 Urine Protein Negative Urine Glucose (UA) Negative Urine Ketones Negative Urine Blood Negative Urine Nitrate Negative Urine Bilirubin Negative Urine Urobilinogen < 2.0 H Urine Leukocytes Negative Urine RBC <1 Urine WBC 4 Ur Squamous Epith Cells Occasional Amorphous Crystals Occasional Urine Bacteria Occasional Urine Mucus Occasional Ur Culture Indicated? Not indicated Blood Type Cancelled Antibody Screen Cancelled Crossmatch See Detail Blood Bank Comment Cancelled - Impressions Impressions: ECG with sinus rhythm and overall really unremarkable except for some left ventricular hypertrophy. Quality Measures - VTE Contraindication to Pharmacological VTE Prophylaxis: High Risk of Bleeding
[2016-06-03 12:17] LABS: Folate 18.4 NG/ML (5.4-24.0); Vitamin B12 401 PG/ML (211-911)
--- NOTE | 2016-06-03 14:11 | Ultrasound Report ---
History: Pelvic pain Date: 06/03/2016 Study: Pelvic ultrasound Comparison exam: No previous similar Real-time ultrasound images are captured and archived. The enlarged uterus measures 24.9 x 10.7 x 17.4 cm maximum dimensions. There are numerous solid heterogeneous masses in the uterus, suggesting probable uterine leiomyomata. The largest of these measures at least 13.5 cm maximum diameter. The endometrial echo is distorted and not seen. The right ovary measures 30 x 15 x 22 mm; the left measures 18 x 37 x 26 mm. There is no adnexal mass. There is no free fluid in the maternal pelvis. The moderately distended ureter bladder is unremarkable. Impression: Multiple large uterine masses, likely uterine leiomyomata, as discussed above PROCEDURE INTERPRETED AT [facility] DEPARTMENT OF RADIOLOGY Final Report Signed by: Dr. Adriane Gilbert
[2016-06-03 15:47] LABS: Basophils % 0.3 % (0.0-0.8); Eosinophils # 0.1 10*3/uL (0.0-0.87); Eosinophils % 1.6 % (0.00-10.9); Hematocrit 26.7 VOL% (35.7-47.0); Hemoglobin 7.4 GM/DL (12.0-16.0); Immature Granulocytes % 0.3 %; Immature Granulocytes Absolute 0.02 #; Lymphocytes # 2.9 10*3/uL (1.4-4.0); Lymphocytes % 42.7 % (21.3-54.2); Mean Corpuscular HGB Conc 27.7 GM/DL (32-36); Mean Corpuscular Hemoglobin 19 PG (27-34); Mean Corpuscular Volume 67.9 FL (87-102); Mean Platelet Volume 9.1 FL (9.6-12.0); Monocytes # 0.6 10*3/uL (0.11-0.8); Monocytes % 8.4 % (1.7-12.7); Neutrophils # 3.1 10*3/uL (1.4-7.4); Neutrophils % 46.7 % (38.7-73.9); Platelet Count 273 T/CUMM (130-400); Red Blood Count 3.93 MC/CUMM (3.8-5.5); Red Cell Distribution Width 30.2 % (9.3-17.3); White Blood Count 6.7 T/CUMM (4-12)
[2016-06-03 16:14] LABS: Elliptocytes 1+; Hypochromasia 2+; Microcytosis 1+
[2016-06-03 16:15] LABS: Schistocytes Few; Target Cells Few
[2016-06-03 16:16] LABS: Platelet Estimate Adequate; Polychromasia Slight
[2016-06-03 16:53] LABS: Sedimentation Rate-Westergren 25 MM/HR (0-20)
[2016-06-03] MEDS ORDERED: POLYETHYLENE GLYCOL 3350/ELECTROLYTES 4,000 ML BOTTLE PO ONE (18:00)
[2016-06-03] MEDS ORDERED: ZALEPLON 5 MG CAPSULE PO PRN (20:02)
[2016-06-04] MEDS: SODIUM CHLORIDE 0.9% 1,000 ML IV SCH ×4 (00:06→15:57)
[2016-06-04 05:12] LABS: Basophils % 0.3 % (0.0-0.8); Eosinophils # 0.1 10*3/uL (0.0-0.87); Hematocrit 25.3 VOL% (35.7-47.0); Hemoglobin 7.1 GM/DL (12.0-16.0); Immature Granulocytes % 0.3 %; Immature Granulocytes Absolute 0.02 #; Lymphocytes # 2.5 10*3/uL (1.4-4.0); Lymphocytes % 38.4 % (21.3-54.2); Mean Corpuscular HGB Conc 28.1 GM/DL (32-36); Mean Corpuscular Hemoglobin 19 PG (27-34); Mean Corpuscular Volume 66.1 FL (87-102); Mean Platelet Volume 9.3 FL (9.6-12.0); Monocytes # 0.5 10*3/uL (0.11-0.8); Monocytes % 7.6 % (1.7-12.7); Neutrophils # 3.4 10*3/uL (1.4-7.4); Neutrophils % 51.4 % (38.7-73.9); Platelet Count 241 T/CUMM (130-400); Red Blood Count 3.83 MC/CUMM (3.8-5.5); Red Cell Distribution Width 30.3 % (9.3-17.3); White Blood Count 6.6 T/CUMM (4-12)
[2016-06-04 05:46] LABS: Elliptocytes Few; Hypochromasia 2+; Platelet Estimate Adequate
[2016-06-04 05:47] LABS: Microcytosis 1+
[2016-06-04] MEDS: PANTOPRAZOLE 40 MG TABLET PO SCH (08:38)
[2016-06-04 08:43] LABS: Hemoglobin A1 (Alkaline) 97.3 % (96.5-98.5); Hemoglobin A2 (Alkaline) 2.7 % (1.5-3.5)
--- NOTE | 2016-06-04 11:51 | OB/GYN Consult Note ---
Assessment and Plan (1) Anemia Status: Acute Current Visit: Yes (2) Leiomyoma of uterus Status: Acute Assessment and plan: 25 wk multifibroid uterus Recommend ANNALISE outpatient REcommend transfusion of 2 additional units of PRBCs as she will likely have a cycle prior to surgery and the surgery itself will drop her counts. Pap and endometrial bx in the next 10 days outpatient Thank you for this consult Current Visit: Yes History of Present Illness Chief complaint: Anemia History of present illness: Ms. Alford is a 45 year old female who was admitted yesterday secondary to near syncope and anemia. S/p tranfusion of 4 units PRBCs. U/s done yesterday revealed a 25 cm multifibroid uterus. Pt reports that she had no knowledge of fibroids prior to yesterday. Has not had AE done in ~ 3 years secondary to lack of insurance. Has insurance now. No medical or surgical history. No h/o abnormal pap. x 3, SAB x 1. Currently abstinent, no hormonal therapy. REports that her cycles "have always been heavy". Over the last year, they are worse with passage of clots. Bleeds regularly for 4 days each month. Wears 2 overnight pads that she changes several times per day. LMP of 05/18/16. Discussion about fibroids, bulk sxs and bleeding sxs. Clearly, she has bleeding issues. Also has bulk sxs. Back pain and urinary frequency. Discussed treatment options. Pt is amenable to hyst. Advised her that she needs a pap and endometrial bx prior. Would recommend surgery in the next 4 weeks. Would also suggest that she be transfused 2 more units as she will likely have a cycle prior to surgery and removal of the uterus will cause a drop in her counts. Home Medications Medication Instructions Recorded Confirmed Type No Known Home Medications [No 06/02/16 06/02/16 History Known Home Medications] Allergies Allergy/AdvReac Type Severity Reaction Status Date / Time No Known Allergies Allergy Unverified 06/02/16 13:05 Medical,Surgical,& Family Hx - Medical History Cardio: History of: PVD, Cardiovascular Problems (heart murmur) Endocrine: No history of: Diabetes Mellitus (IDDM) Genitourinary: No history of: Recurring Urinary Tract Infections Hematology: History of: Anemia No history of: Bleeding Problems - Surgical History Cardiac Surgeries: Patient Denies: Cardiac Surgery Reproductive Surgeries: Patient denies;: Breast Surgery - Family History Family History: Reports;: Family Diabetes (mother), Family Hypertension, Family Stroke (mother) - Social History Smoking Status: Never smoker Frequency of Alcohol Use: None Type of Drug Use: None 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: Vital Signs Temp Pulse Pulse Resp BP BP Pulse Ox 06/04/16 07:59 98.4 F 58 L 20 159/72 99 06/04/16 06:05 16 06/04/16 04:06 20 06/04/16 04:00 97.5 F L 66 20 128/68 97 06/04/16 02:06 16 06/04/16 00:00 98.9 F 65 20 137/77 100 06/03/16 22:58 18 06/03/16 20:58 16 06/03/16 20:00 98.3 F 66 20 132/73 98 06/03/16 16:12 98.3 F 70 20 134/69 96 06/03/16 16:00 98.3 F 70 20 134/69 06/03/16 12:52 98.4 F 62 18 136/85 06/03/16 12:40 98.4 F 63 18 136/85 06/03/16 12:35 98.4 F 62 20 140/79 06/03/16 12:30 98.4 F 65 18 141/80 06/03/16 12:23 98.3 F 59 L 16 131/85 06/03/16 12:10 98.2 F 51 L 20 134/77 99 General appearance: no acute distress - Head Head exam: Present: normal inspection, normocephalic - Eye Eye exam: Present: EOMI Pupils: Present: TAMELA - GI/Abdominal GI/Abdominal exam: Present: other (Bulky uterus easily palpable. Top of uterus just above umbillicus.) Results - Labs CBC & BMP: 06/04/16 04:10 06/03/16 05:56
--- NOTE | 2016-06-04 16:57 | Cardiology Progress Note ---
Doug Johnson Vanessa, RN, am scribing for, and in the presence of, Mira Cummings MD 16:57. Assessment and Plan - Time spent with patient Time spent with patient: Greater than 30 minutes (1) Near syncope Status: Acute Assessment and plan: No recurrence of dizziness, lightheadedness, or other presyncopal symptoms. Near syncopal episodes most likely related to profound anemia present upon admission. Current Visit: Yes (2) Anemia Status: Acute Assessment and plan: Patient has received a total of 4 units PRBCs since admission. H/H improved to 7.1 & 25.3. She has been evaluated by [facility] after pelvic u/s revealed multiple uterine fibroids and she has a history of heavy menstrual cycles. Current Visit: Yes (3) Chest pain Status: Resolved Assessment and plan: Resolved. No further chest pain overnight or today. Cardiac biomarkers have been negative and EKG without ischemic change. Chest pain most likely related to profound anemia. Current Visit: Yes (4) Shortness of breath Status: Resolved Assessment and plan: No further shortness of breath overnight or this morning. This appears to have resolved after blood transfusion. Current Visit: Yes (5) Cardiac murmur Status: Acute Current Visit: Yes (6) Menorrhagia Status: Chronic Assessment and plan: Patient has been evaluated by Dr. Romo, [facility] Current Visit: No (7) Palpitations Status: Resolved Assessment and plan: No PVC, PAC, or other sustained arrhythmia per EKG monitoring. Patient may have experienced some tachycardia/atrial tachyarrhythmia in light of significant anemia, but this has not recurred. Current Visit: Yes Cardiology - PN: Subj Interval history: Ms. Alford is a 45 year old black female with PMHx including PVD and anemia. She is seen in follow up today after consultation for near syncope and palpitations. Upon admission, she was found to be severely anemic with H/H 4.4 & 18.2 without overt bleeding. She did have some associated shortness of breath and chest pain. Patient has since received a total of 4 units PRBCs, and current H/H 7.1 & 25.3. EKG monitoring has been without arrhythmia. A pelvic ultrasound has revealed multiple uterine fibroids. She has been evaluated by Dr. Romo, [facility] [employer]. Patient is awake and alert this morning resting quietly without acute distress or need noted. Denies chest pain, shortness of breath today. No further presyncope s/s. EKG has revealed sinus rhythm with regular rate without ectopy or other sustained arrhythmia. Blood pressure is overall fairly well controlled. In general all of her symptoms appear to be related to her profound anemia. We will sign off, please contact us for further dynamic cardiac problems. Exam (Progress Note) - Constitutional Vitals: Period Temp Pulse Resp BP Sys/Page Pulse Ox Last 24 Hr 97.5 F-98.9 F 51-70 16-20 128-159/68-85 96-100 Exam: General appearance: Overweight, no acute distress Head exam: normal inspection, atraumatic. No laceration, contusion, hematoma. Eye exam: Pupils are equal and reactive. EOMI. Pupils are not fixed or dilated. Ear exam: Anatomically normal. Normal auditory acuity to conversation. Oral exam: No significant oral lesions. Neck exam: normal inspection no JVD. No carotid bruit. Trachea is in midline. Respiratory exam: clear to auscultation bilaterally. No rales, rhonchi or wheezes. Cardiovascular exam: regular rate and rhythm, with systolic murmur heard at the left upper sternal border and apex. GI/Abdominal exam: normal bowel sounds, soft and nontender, no abdominal bruits or pulsatile masses. Musculoskeletal/Extremities exam: normal inspection without edema or cyanosis. No deformities or trauma. Distal extremities 2-3+ pulses bilaterally Neurological exam: alert, oriented X3. There is no gross neurologic deficits. Psychiatric exam: normal affect, normal mood. Cognitive function is grossly intact. Skin exam: normal color, warm, dry. No rashes or suspicious lesions. Result/EKG - Labs CBC & BMP: 06/04/16 04:10 06/03/16 05:56 Lab Results: I have reviewed the past 24 hour labs Labs: Laboratory Results - last 24 hr 06/03/16 06/03/16 06/03/16 07:48 11:13 11:14 WBC RBC Hgb Hct MCV MCH MCHC RDW Plt Count MPV Neut % (Auto) Lymph % (Auto) Emanuel % (Auto) Eos % (Auto) Baso % (Auto) Neut # (Auto) Lymph # (Auto) Emanuel # (Auto) Eos # (Auto) Baso # (Auto) Immature Gran % Nucleated RBC % Immature Gran # Nucleated RBCs # Anemia Panel Interp Platelet Estimate Polychromasia Hypochromasia Microcytosis Target Cells Elliptocytes Schistocytes Morphology Comment ESR Westergren Absolute Retic Percent Retic Retic Hgb Equivalent Hemoglobin A1 97.3 Hemoglobin A2 2.7 Hgb ELP Interp Ferritin 1.6 L Vitamin B12 401 Folate 18.4 Blood Type Cancelled Antibody Screen Cancelled BRYSON (IgG-AHG) BRYSON, Polyspecific Crossmatch See Detail Blood Bank Comment Cancelled 06/03/16 06/03/16 06/04/16 15:33 Unknown 04:10 WBC 6.7 6.6 RBC 3.93 3.83 Hgb 7.4 L D 7.1 L Hct 26.7 L 25.3 L MCV 67.9 L 66.1 L MCH 19 L 19 L MCHC 27.7 L 28.1 L RDW 30.2 H 30.3 H Plt Count 273 241 MPV 9.1 L 9.3 L Neut % (Auto) 46.7 51.4 Lymph % (Auto) 42.7 38.4 Emanuel % (Auto) 8.4 7.6 Eos % (Auto) 1.6 2.0 Baso % (Auto) 0.3 0.3 Neut # (Auto) 3.1 3.4 Lymph # (Auto) 2.9 2.5 Emanuel # (Auto) 0.6 0.5 Eos # (Auto) 0.1 0.1 Baso # (Auto) 0.0 0.0 Immature Gran % 0.3 0.3 Nucleated RBC % 0.0 0.0 Immature Gran # 0.02 0.02 Nucleated RBCs # 0.00 0.00 Anemia Panel Interp Platelet Estimate Adequate Adequate Polychromasia Slight Hypochromasia 2+ 2+ Microcytosis 1+ 1+ Target Cells Few Elliptocytes 1+ Few Schistocytes Few Morphology Comment ESR Westergren 25 H Absolute Retic 0.0 Percent Retic 0.1 L Retic Hgb Equivalent 15.6 L Hemoglobin A1 Hemoglobin A2 Hgb ELP Interp Ferritin Vitamin B12 Folate Blood Type Antibody Screen BRYSON (IgG-AHG) Negative BRYSON, Polyspecific Negative Crossmatch Blood Bank Comment - EKG EKG results: interpreted by me, no acute changes EKG shows: sinus rhythm Quality Measures - VTE Contraindication to Pharmacological VTE Prophylaxis: High Risk of Bleeding I, Mira Cummings MD, personally performed the services described in this documentation, ascribed by Belem Camacho RN in my presence, and it is both accurate and complete .
--- NOTE | 2016-06-04 18:55 | Hospitalist Progress Note ---
Assessment and Plan (1) Anemia Status: Acute Assessment and plan: Anemia 2/2 Menorrhagia. Evaluated by DELIVERY ANALYST (Appreciate input), who will plan for ANNALISE on an outpatient basis and prior to this, pap with endometrial bx. Will go ahead and transfuse 2 additional units in preparation for this. If hemodynamically stable, can likely be discharged with DELIVERY ANALYST f/u. Current Visit: Yes Qualifiers: Iron deficiency anemia type: chronic blood loss (2) Syncope Status: Acute Current Visit: Yes (3) Menorrhagia Status: Chronic Current Visit: No (4) Cardiac murmur Status: Acute Current Visit: Yes (5) Leiomyoma of uterus Status: Acute Current Visit: Yes Hospitalist: Subjective Interval history: Patient is hemodynamically stable. Anemia likely 2/2 menorrhagia from bleeding fibroids. Patient seen by DELIVERY ANALYST (appreciate their input). Plans are for an outpatient ANNALISE but prior to that, to undergo endometrial bx with pap. Will transfuse 2 additonal units in preparation for this. Exam - Constitutional Vitals: Period Temp Pulse Resp BP Sys/Page Pulse Ox Last 24 Hr 97.5 F-98.9 F 58-66 16-20 128-159/68-78 97-100 General appearance: normal weight, no acute distress, over weight - Head Head exam: Present: normal inspection, normocephalic, atraumatic - Eye Eye exam: Present: EOMI - Respiratory Respiratory exam: Present: clear to auscultation bilaterally. Absent: rales, rhonchi, wheezes - Cardiovascular Cardiovascular exam: Present: regular rate and rhythm, systolic murmur. Absent : JVD - GI/Abdominal GI/Abdominal exam: Present: normal bowel sounds, soft. Absent: distended, tenderness - Neurological Exam Neurological exam: Present: alert, oriented X3, CN II-XII intact - Psychiatric Psychiatric exam: Present: normal affect, normal mood - Skin Skin exam: Present: normal color, warm, dry Results - Labs CBC & BMP: 06/04/16 04:10 06/03/16 05:56 Quality Measures - VTE Contraindication to Pharmacological VTE Prophylaxis: High Risk of Bleeding
[2016-06-04] MEDS ORDERED: SODIUM CHLORIDE 0.9% 250 ML IV PRN (18:59)
[2016-06-05] MEDS: SODIUM CHLORIDE 0.9% 1,000 ML IV SCH ×2 (01:07→11:01)
[2016-06-05 06:25] LABS: Hematocrit 31.3 VOL% (35.7-47.0)
[2016-06-05 06:27] LABS: Hemoglobin 9.1 GM/DL (12.0-16.0)
[2016-06-05] MEDS: PANTOPRAZOLE 40 MG TABLET PO SCH (08:51)
--- NOTE | 2016-06-05 10:49 | Gastrointestinal Progress Note ---
<AugustusYasmeen kenyon D - Last Filed: 06/05/16 10:46> Assessment and Plan (1) Anemia Status: Acute Assessment and plan: 06/05-Hgb holding at 9.1 following 6 units PRBC. Findings of uterine fibroids with history of heavy menstrual cycles. No GI complaints associated with the anemia. Pt wishes to defer further GI workup at present d/t gynecological findings. Plan and addendum to follow by Dr Wright. Qualifiers: Iron deficiency anemia type: chronic blood loss Gastroenterology - PN: Subj Interval history: CC: Anemia Pt is seen, awake and alert lying in bed. States she is feeling better today. She was admitted with findings of anemia however since admission she has been seen by MIGRANT LEADER and was found to have uterine fibroids. She is scheduled to return as outpatient for hysterectomy as well as further testing regarding this. She was scheduled to have an outpatient EGD on yesterday however this was cancelled following the findings of the uterine fibroids. Her hemoglobin is holding at 9.1 and has had a total of 6 units of blood since admission. She has a very long history of very heavy menstrual cycles and felt her anemia at this time is related to this. She has no upper or lower GI complaints. Denies any melena or hematochezia. Abdomen is soft, nontender. ROS: Denies SOB or chest pain Exam (Progress Note) - Constitutional Vitals: Period Temp Pulse Resp BP Sys/Page Pulse Ox Last 24 Hr 98.1 F-99.4 F 51-72 16-20 130-155/66-86 98-100 General appearance: normal weight, no acute distress - Head Head exam: Present: normal inspection, normocephalic - Eye Eye exam: Present: other (lids and conjunctiva unremarakble). Absent: scleral icterus - ENT ENT exam: Present: normal exam, normal oropharynx - Neck Neck exam: Present: normal inspection - Respiratory Respiratory exam: Present: clear to auscultation bilaterally. Absent: rales, rhonchi, wheezes - Cardiovascular Cardiovascular exam: Present: regular rate and rhythm. Absent: diastolic murmur , JVD, systolic murmur - GI/Abdominal GI/Abdominal exam: Present: normal bowel sounds, soft. Absent: ascites, distended, mass, organomegaly, tenderness - Extremities Exam Extremities exam: Present: normal inspection, full ROM - Back Exam Back exam: Present: normal inspection - Neurological Exam Neurological exam: Present: alert, oriented X3 - Psychiatric Psychiatric exam: Present: normal affect, normal mood - Skin Skin exam: Present: normal color, warm, dry Results - Labs CBC & BMP: 06/05/16 06:00 06/03/16 05:56 Lab Results: I have reviewed the past 24 hour labs Specialty Discharge - Follow Up or Referrals Follow up with: , pcp [Other] - 2 Weeks Monika Romo MD [Physician] - 06/19/16 1:00 pm (JUNE 19- ARRIVE @ 1:00. BRING INSURANCE CARD AND PHOTO ID. ) <Donte Wright - Last Filed: 06/05/16 21:41> Exam (Progress Note) - Constitutional Vitals: Period Temp Pulse Resp BP Sys/Page Pulse Ox Last 24 Hr 98.1 F-99.4 F 51-70 16-20 130-155/66-86 99-100 Results - Labs CBC & BMP: 06/05/16 06:00 06/03/16 05:56
--- NOTE | 2016-06-05 11:19 | Discharge Summary ---
Hospital Course - Hospital Course Hospital Course: Patient is a 45-year-old female who presented to the hospital with a chief complaint of shortness of breath, lightheadedness, palpitations and dizziness. She was found to have symptomatic anemia with hemoglobin of approximately 5. OB/ ENGINEERING LIBRARIAN (Dr. Jimena Romo), cardiology (Dr. Eaton), and gastroenterology (Dr. Acevedo) were consulted to assist with her management. EKG showed sinus rhythm at 65 bpm with evidence of LVH. Echocardiogram was done and showed a normal EF with mild concentric LVH and an RSVP of 54. Cardiology did not make any further recommendations regarding intervention but agreed with blood transfusion. Pelvic ultrasound was done and showed multiple fibroids. She received a total of 6 units of packed red blood cells. AUTOMOTIVE TECHNICIAN INSTRUCTOR recommended an outpatient total abdominal hysterectomy with a Pap and endometrial biopsy within the next 10 days. Gastroenterology evaluated the patient and recommended a proton pump inhibitor but due to the significant ENGINEERING LIBRARIAN findings felt her symptoms warrant were more likely related to this. After discussion with the patient it was determined that they would defer endoscopic workup at this time. Vitamin B12 levels were noted to be 400 ferritin levels were noted to be 1.6 TSH was within normal limits LDH was 117 and haptoglobin was 110. Patient's coag panel was normal. Urinalysis was unremarkable. SYDNEY was negative. BNP was normal at 56. When she was cleared by all consultants, patient was discharged to home for ongoing care on iron and vitamin B12 supplementation. - Time spent with patient Time with patient DS: Greater than 30 minutes (39 minutes to arrange this discharge) Diagnosis - Discharge Diagnosis (1) Vitamin B12 deficiency Status: Acute (2) Iron deficiency anemia due to chronic blood loss Status: Acute (3) Anemia Status: Acute (4) Leiomyoma of uterus Status: Acute (5) Near syncope Status: Resolved (6) Chest pain Status: Resolved (7) Palpitations Status: Resolved (8) Menorrhagia Status: Chronic Specialty Discharge - Follow Up or Referrals Follow up with: , pcp [Other] - 2 Weeks Monika Romo MD [Physician] - 06/19/16 1:00 pm (JUNE 19- ARRIVE @ 1:00. BRING INSURANCE CARD AND PHOTO ID. ) Discharge Plan - Discharge Data Disposition: Disch To Home/Self Care Condition at Discharge: Stable Discharge Diet: regular diet Activity: resume usual activities as tolerated Contact your physician if you experience:: Bleeding - Discharge Medications New Acetaminophen Tab [Tylenol Tab] 650 mg PO Q4H PRN #0 tablet PRN Reason: Fever, Headache, Mild Pain Docusate Sodium Cap [Colace Cap] 100 mg PO BID PRN #0 capsule PRN Reason: Constipation Pantoprazole Tab [Protonix Tab] 40 mg PO DAILY #30 tablet Cyanocobalamin Tab [Vitamin B12 Tab] 500 mcg PO BID #60 tablet Iron,Carbonyl/Ascorbic Acid [Icar-C Tablet] 1 each PO BID #60 tablet - Follow Up or Referral Follow Up: md, pcp [Other] - 2 Weeks Monika Romo MD [Physician] - 06/19/16 1:00 pm (JUNE 19- ARRIVE @ 1:00. BRING INSURANCE CARD AND PHOTO ID. ) - Forms/Instructions Exam - Constitutional Vitals: Period Temp Pulse Resp BP Sys/Page Pulse Ox Last 24 Hr 98.1 F-99.4 F 51-72 16-20 130-155/66-86 98-100 Exam: General :patient is awake alert and oriented 4 lying in the hospital bed in no acute distress Cardiovascular: Regular rate and rhythm normal S1-S2 no obvious murmurs rubs or gallops Lungs: Clear to auscultation bilaterally with good aeration nonlabored breathing noted Abdomen: Soft nontender nondistended positive bowel sounds Extremities: Warm and well-perfused no clubbing cyanosis or edema Discharge Results Labs on day of discharge: Labs from last 24 hours 06/05/16 06/04/16 06:00 19:24 Hgb 9.1 L D Hct 31.3 L Blood Type Cancelled Antibody Screen Cancelled Crossmatch See Detail Blood Bank Comment Cancelled - Imaging and Cardiology Cardiology Procedure: report reviewed by me (EKG and echo as noted above) Procedure: Ultrasound: report reviewed by me (Pelvic ultrasound showed multiple leiomyomas) DS: Provider Date of admission: 06/02/16 18:07 Primary care physician: . No PCP Attending physician on admission: Mario Espinoza MD Consults: 06/02/16 19:00 Consult to Physician [CONS] Routine Comment: ho palpitations/syncope Consulting Provider: Cardiology - [facility] When should Consulting Provider be notified: In am 06/02/16 19:16 Consult to Physician [CONS] Routine Comment: 05/29, dark stool last wk, syncope Consulting Provider: Jona Acevedo V 06/04/16 10:02 Consult to Physician [CONS] Routine Comment: 45 yo with severe symptomatic anemia 2/2 fibroids Consulting Provider: Monika Romo Consult to Specialist Group: OBGYN Person Notified: GILDA Date Notified: 06/04/16 Time Notified: 10:30 Consult [place] [facility] [place]ing clinician: Gisselle Joy MD
[2016-06-05 12:24] VITALS: BP 152/73
== END 2016-06-05 14:11 | disposition home or self-care (01) | DRG 812 ==
LOC: N.ED 13:01 → SUATTDRO 18:07 → N.EDINP 18:07 → N.TELES 19:23
PROVIDERS: ADMIT Internal Medicine; ATTEND Pediatrics

== ENCOUNTER 2016-07-03 06:31 | Inpatient (IN) ==
[2016-07-02 12:14] LABS: Basophils % 0.4 % (0.0-0.8); Eosinophils # 0.1 10*3/uL (0.0-0.87); Eosinophils % 1.5 % (0.00-10.9); Hemoglobin 9.5 GM/DL (12.0-16.0); Immature Granulocytes % 0.1 %; Immature Granulocytes Absolute 0.01 #; Mean Corpuscular HGB Conc 30.6 GM/DL (32-36); Mean Corpuscular Hemoglobin 24 PG (27-34); Mean Corpuscular Volume 77.3 FL (87-102); Mean Platelet Volume 9.3 FL (9.6-12.0); Monocytes # 0.4 10*3/uL (0.11-0.8); Monocytes % 5.9 % (1.7-12.7); Neutrophils # 4.2 10*3/uL (1.4-7.4); Neutrophils % 62.1 % (38.7-73.9); Platelet Count 471 T/CUMM (130-400); Red Blood Count 4.01 MC/CUMM (3.8-5.5); Red Cell Distribution Width 25.8 % (9.3-17.3); White Blood Count 6.7 T/CUMM (4-12)
[2016-07-02 12:19] LABS: Apearance,Urine Slightly Hazy (Clear); Bilirubin,Urine Negative (Negative); Blood, Urine Negative (Negative); Glucose,Urine (UA) Negative (Negative); Ketones,Urine Negative (Negative); Mucus,Urine Occasional /LPF (Occasional); Nitrite,Urine Negative (Negative); Protein,Urine Negative; RBC,Urine 1 /HPF (0-4); Squamous Epithelial Cell,Urine Few /HPF (0-10); Urine Color Yellow (Yellow); Urine Specific Gravity 1.017 (1.001-1.035); Urine Urobilinogen < 2.0 EU/DL (0.2-1.0); WBC,Urine 1 /HPF (0-6)
[2016-07-02 12:37] LABS: Alanine Aminotransferase 27 U/L (13-56); Albumin 3.6 G/DL (3.4-5.0); Alkaline Phosphatase 73 U/L (45-117); Aspartate Amino Transferase 21 U/L (0-37); Bilirubin,Total < 0.39 MG/DL (0.2-1.0); Blood Urea Nitrogen 14 MG/DL (7-18); Calcium 8.8 MG/DL (8.5-10.1); Cholesterol 129 MG/DL (50-200); Glucose 97 MG/DL (74-106); HDL Cholesterol 49 MG/DL (40-60); Osmolality,Calculated 277.5 MOS/KG (273-304); Potassium 4.3 MMOL/L (3.5-5.1); Risk Ratio 2.63; Sodium 139 MMOL/L (136-145); Total Protein 7.5 G/DL (6.4-8.3); Triglycerides 115 MG/DL (2-150)
--- NOTE | 2016-07-02 14:35 | XRay Report ---
History: Respiratory preop evaluation Date: 07/02/2016 Study: Chest x-ray PA and lateral Comparison exam: June 02, 2016 The cardiac silhouette is borderline prominent. There is no mediastinal mass. The pulmonary vasculature is not engorged. The lungs and pleural spaces are clear. Osseous structures are unchanged. Impression: No acute cardiopulmonary process. No significant interval change PROCEDURE INTERPRETED AT [facility] DEPARTMENT OF RADIOLOGY Final Report Signed by: Dr. Adriane Gilbert
[2016-07-02 17:13] LABS: HIV Antigen/Antibody Result Nonreactive (Nonreactive)
[~2016-07-03 06:31] MED LIST: AMPICILLIN/SULBACTAM 3,000 MG VIAL ONE; AMPICILLIN/SULBACTAM 3,000 MG in SODIUM CHLORIDE 0.9% 100 ML IV ONE; SODIUM CHLORIDE 0.9% 100 ML IV ONE
[2016-07-03] MEDS ORDERED: HYDROmorphone 2 MG/1 ML VIAL IV PRN ×2 (06:42→12:10)
[2016-07-03] MEDS ORDERED: MEPERIDINE 25 MG/1 ML VIAL IV PRN (06:42)
[2016-07-03] MEDS ORDERED: ONDANSETRON 4 MG/2 ML VIAL IV PRN ×2 (06:42→12:08)
[2016-07-03] MEDS ORDERED: DOCUSATE SODIUM 100 MG CAPSULE PO PRN (06:44)
[2016-07-03] MEDS ORDERED: ACETAMINOPHEN 325 MG TABLET PO PRN ×2 (06:44→12:08)
--- NOTE | 2016-07-03 08:28 | History and Physical Update ---
History and Physical Update - History and Physical H&P was reviewed, the patient examined and there: are no changes in the patients condition since last H&P was completed.
[2016-07-03] MEDS ORDERED: MICROFIBRILLAR COLLAGEN POWDER 1 GM CAN TOP ONE (08:32)
[2016-07-03] MEDS: LACTATED RINGERS 1,000 ML IV SCH ×3 (08:45→16:00)
[2016-07-03] MEDS ORDERED: PANTOPRAZOLE 40 MG TABLET PO SCH (09:00)
[2016-07-03] MEDS ORDERED: IRON (CARBONYL)/VIT C/B12/FA TABLET PO SCH (09:00)
[2016-07-03] MEDS ORDERED: CYANOCOBALAMIN 500 MCG TABLET PO SCH (09:00)
[2016-07-03] MEDS ORDERED: SODIUM CHLORIDE 0.9% 250 ML IV PRN (09:23)
[2016-07-03] MEDS ORDERED: ACETAMINOPHEN 1,000 MG/100 ML VIAL IV ONE (10:59)
[2016-07-03] MEDS ORDERED: SEVOFLURANE 1 UNIT/15 MINUTE INH ONE (10:59)
[2016-07-03] MEDS ORDERED: fentaNYL 100 MCG/2 ML VIAL ONE (10:59)
[2016-07-03] MEDS ORDERED: MIDAZOLAM 2 MG/2 ML VIAL ONE (10:59)
[2016-07-03 11:04] LABS: Apearance,Urine CLEAR (Clear); Bilirubin,Urine Negative (Negative); Blood, Urine Negative (Negative); Glucose,Urine (UA) Negative (Negative); Ketones,Urine Negative (Negative); Nitrite,Urine Negative (Negative); Protein,Urine Negative; Squamous Epithelial Cell,Urine Occasional /HPF (0-10); Urine Color Colorless (Yellow); Urine Specific Gravity 1.006 (1.001-1.035); Urine Urobilinogen < 2.0 EU/DL (0.2-1.0)
[2016-07-03] MEDS ORDERED: HYDROmorphone PCA 30 MG/30 ML SYRINGE IV ONE ×2 (11:42→12:36)
[2016-07-03] MEDS ORDERED: BISACODYL 10 MG SUPP RECTAL PRN (12:08)
[2016-07-03] MEDS ORDERED: BENZOCAINE/MENTHOL LOZENGE 18/BOX PO PRN (12:08)
[2016-07-03] MEDS ORDERED: NALOXONE 0.4 MG/ML VIAL IV PRN (12:34)
[2016-07-03] MEDS ORDERED: HYDROmorphone PCA 30 MG/30 ML SYRINGE IV SCH (13:00)
[2016-07-03] MEDS ORDERED: hydrALAZINE 20 MG/1 ML VIAL IV ONE (15:45)
[2016-07-03 18:14] LABS: Basophils % 0.1 % (0.0-0.8); Hematocrit 31.2 VOL% (35.7-47.0); Hemoglobin 9.9 GM/DL (12.0-16.0); Immature Granulocytes % 0.4 %; Immature Granulocytes Absolute 0.09 #; Lymphocytes # 0.9 10*3/uL (1.4-4.0); Lymphocytes % 4.5 % (21.3-54.2); Mean Corpuscular HGB Conc 31.7 GM/DL (32-36); Mean Corpuscular Hemoglobin 24 PG (27-34); Mean Corpuscular Volume 76.3 FL (87-102); Mean Platelet Volume 9.5 FL (9.6-12.0); Monocytes # 0.8 10*3/uL (0.11-0.8); Monocytes % 3.8 % (1.7-12.7); Neutrophils # 18.6 10*3/uL (1.4-7.4); Neutrophils % 91.2 % (38.7-73.9); Platelet Count 416 T/CUMM (130-400); Red Blood Count 4.09 MC/CUMM (3.8-5.5); Red Cell Distribution Width 24.3 % (9.3-17.3); White Blood Count 20.4 T/CUMM (4-12)
[2016-07-03 18:54] LABS: Elliptocytes Few; Hypochromasia 1+; Lymphocytes 3 % (20-55); Segmented Neutrophils 94 % (50-85); Total Cells Counted 100
[2016-07-03 18:55] LABS: Platelet Estimate Increased
--- NOTE | 2016-07-03 19:20 | Anesthesia Post-Op ---
Anesthesia Post OP - Post Ansesthetic Evaluation Patient seen in post op: Yes Resp: within normal limits CV: within normal limits Mental: within normal limits Temp: within normal limits [id number]: within normal limits Nausea and Vomiting: within normal limits Pain: within normal limits
[2016-07-04] MEDS: LACTATED RINGERS 1,000 ML IV SCH (01:35)
[2016-07-04 07:02] LABS: Basophils % 0.1 % (0.0-0.8); Eosinophils % 0.3 % (0.00-10.9); Hematocrit 29.1 VOL% (35.7-47.0); Hemoglobin 9.1 GM/DL (12.0-16.0); Immature Granulocytes % 0.3 %; Immature Granulocytes Absolute 0.05 #; Lymphocytes # 1.4 10*3/uL (1.4-4.0); Lymphocytes % 9.1 % (21.3-54.2); Mean Corpuscular HGB Conc 31.3 GM/DL (32-36); Mean Corpuscular Hemoglobin 25 PG (27-34); Mean Corpuscular Volume 78.2 FL (87-102); Monocytes % 6.3 % (1.7-12.7); Neutrophils # 12.7 10*3/uL (1.4-7.4); Neutrophils % 83.9 % (38.7-73.9); Platelet Count 267 T/CUMM (130-400); Red Blood Count 3.72 MC/CUMM (3.8-5.5); Red Cell Distribution Width 24.7 % (9.3-17.3); White Blood Count 15.2 T/CUMM (4-12)
[2016-07-04 07:29] LABS: Hypochromasia 1+; Ovalocytes Slight; Platelet Estimate Adequate
[2016-07-04] MEDS: IBUPROFEN 800 MG TABLET PO PRN ×2 (08:35→21:08)
[2016-07-04] MEDS: FERROUS SULFATE 325 MG TABLET PO SCH ×2 (09:39→21:08)
[2016-07-04] MEDS: DOCUSATE SODIUM 100 MG CAPSULE PO PRN ×2 (09:40→21:08)
[2016-07-04] MEDS: MAGNESIUM HYDROXIDE SUSP 30 ML UDCUP PO PRN ×2 (09:40→22:40)
--- NOTE | 2016-07-04 10:22 | Progress Note ---
Family Medicine PN Sub Interval history: Postop day #1 Status post ANNALISE/BSO Patient received intraoperative transfusion secondary to anemia. This patient' s postoperative H&H is equal to her preoperative H&H and she is doing well. Lungs are clear, cardiac exam was benign Incision sites intact Extremities well within normal limits Assessment plan status post ANNALISE/BSO We will continue with present therapy advance diet as to clear liquids, and also we will add IV Reglan 10 mg every 8 as needed. Exam (Progress Note) - Constitutional Vitals: Period Temp Pulse Resp BP Sys/Page Pulse Ox Last 24 Hr 96.5 F-98.4 F 57-84 16-20 115-169/71-99 98-100 Results - Labs CBC & BMP: 07/04/16 06:21 07/02/16 11:57 Quality Measures - VTE Contraindication to Pharmacological VTE Prophylaxis: Clinical assessment deems Pt at low risk, no prophalaxis needed
[2016-07-04] MEDS ORDERED: LACTATED RINGERS 1,000 ML IV SCH (10:30)
[2016-07-04] MEDS: METOCLOPRAMIDE 10 MG/2 ML VIAL IV SCH ×2 (10:49→18:56)
--- NOTE | 2016-07-04 12:47 | Pathology Report from [facility] ---
[facility] – [place]ESSION # : [id number] PATIENT NAME : Daja Alford ORDERING DR : MARY FERREIRA MD CLINICAL HX: Dysfunctional uterine bleeding - Uterine fibroids and pelvic pain POST-OP DX: Same SPECIMEN INFO: Uterus, tubes and ovaries, bilateral with fibroid GROSS DESCRIPTION: Received fresh labeled DAJA ALFORD is a uterus with unattached cervix weighing 1763 gms and measuring 23.5 x 13.8 x 10.8 cm. The serosa is red myers with adhesions present. The cervix measures 4.0 cm. The cervical os measures 1.0 cm. The endocervical canal is myers and patent. The endometrium has an average mucosal thickness of 0.3 cm. Bivalving the uterus reveals two white degenerative somewhat mucinous nodular masses measuring 8.8 x 8.5 cm and 11.5 x 11.2 cm respectively. The right ovary is yellow pink and measures 3.7 x 3.2 cm with adhesions noted on the ovary surface. Sectioning reveals multiple clear fluid filled cysts measuring up to 0.5 cm as well as a 2.0 cm hemorrhagic corpus luteum. The adjacent fallopian tube is fimbriated and measures 4.0 x 0.8 cm. The left ovary measures 4.0 x 3.2 cm with adhesions noted on the ovary surface. Sectioning reveals multiple clear fluid filled cysts measuring up to 0.7 cm as well as a hemorrhagic corpus luteum measuring 1.3 cm. The adjacent fallopian tube is fimbriated and measures 6.0 x 0.7 cm with a 1.0 cm paratubal cyst noted. Sections submitted A-Cervix, B&C- Endomyometrium, D-Posterior uterine serosa and serosal adhesions, E&F- Intramural masses, G-RT ovary and tube, H-LT ovary, I-LT tube. DIAGNOSIS FOR DAJA ALFORD: UTERUS, TUBES & OVARIES: Chronic cystic cervicitis. Early secretory endometrium with cystic changes. Superficial adenomyosis. Leiomyomas with degenerative changes. Serosal fibrous adhesions. Right ovary with a hemorrhagic corpus luteum; fallopian tube. Left ovary with follicular cysts; fallopian tube with paratubal cysts. COLLECTED DATE: 07/03/2016 [facility] REPORT DATE: 07/04/2016 ELECTRONICALLY SIGNED BY: Javi Pederson M.D. 07/04/2016 - 10:12:29 [facility]
[2016-07-04] MEDS ORDERED: SIMETHICONE CHEW 80 MG TABLET PO PRN (20:56)
[2016-07-05] MEDS: METOCLOPRAMIDE 10 MG/2 ML VIAL IV SCH ×2 (03:15→10:44)
[2016-07-05] MEDS ORDERED: MAGNESIUM CITRATE 300 ML BOTTLE PO ONE (07:24)
[2016-07-05 07:44] VITALS: BP 126/78
[2016-07-05] MEDS: DOCUSATE SODIUM 100 MG CAPSULE PO PRN (08:52)
[2016-07-05] MEDS: FERROUS SULFATE 325 MG TABLET PO SCH (08:52)
[2016-07-05] MEDS ORDERED: ESTRADIOL VALERATE IM 100 MG/5 ML VIAL IM ONE (10:45)
[2016-07-05] MEDS: MAGNESIUM HYDROXIDE SUSP 30 ML UDCUP PO PRN (10:45)
--- NOTE | 2016-07-05 12:20 | Discharge Summary ---
Hospital Course - Hospital Course Hospital Course: Ms. Alford is a 46-year-old female who presented to the hospital with complaints of dysfunctional uterine bleeding bleeding and pelvic pain. The patient was admitted and subsequently had a total abdominal hysterectomy with bilateral salpingo-oophorectomy. She has done well postoperatively. Her incision is well approximated without signs of infection. Her bowel sounds are positive. Her vital signs and lab values are stable. She is voiding without difficulty. She will be discharged home with prescriptions for pain and follow- up appointment in our office. Specialty Discharge - Follow Up or Referrals Follow up with: Verito Sheldon MD [Physician] - 2 Weeks Discharge Plan - Discharge Data Disposition: Disch To Home/Self Care Condition at Discharge: Stable Discharge Diet: regular diet Activity: resume usual activities as tolerated Hygiene: may shower Weight Bearing at Discharge: partial weight bearing Driving: not until seen by doctor Contact your physician if you experience:: fever over 101, pain uncontrolled by pain medications - Discharge Medications New HYDROcodone/ACETAMIN 5-325 [Manter 5-325] 2 tablet PO Q4H PRN #30 tablet PRN Reason: Pain Moderate (4-7) Ibuprofen Tab [Motrin Tab] 800 mg PO Q8H PRN #30 tablet PRN Reason: Pain Mild To Moderate (1-7) Ferrous Sulfate Tab [Feosol Original Tab] 325 mg PO BID tablet No Action Acetaminophen Tab [Tylenol Tab] 650 mg PO Q4H PRN #0 tablet PRN Reason: Fever, Headache, Mild Pain Docusate Sodium Cap [Colace Cap] 100 mg PO BID PRN #0 capsule PRN Reason: Constipation Pantoprazole Tab [Protonix Tab] 40 mg PO DAILY #30 tablet Cyanocobalamin Tab [Vitamin B12 Tab] 500 mcg PO BID #60 tablet Iron,Carbonyl/Ascorbic Acid [Icar-C Tablet] 1 each PO BID #60 tablet - Follow Up or Referral - Forms/Instructions Exam - Constitutional Vitals: Period Temp Pulse Resp BP Sys/Page Pulse Ox Last 24 Hr 96.7 F-97.8 F 69-94 16-22 118-157/71-82 95-98 General appearance: no acute distress - Head Head exam: Present: normal inspection - Neck Neck exam: Present: normal inspection - Respiratory Respiratory exam: Present: clear to auscultation bilaterally - Cardiovascular Cardiovascular exam: Present: regular rate and rhythm - GI/Abdominal GI/Abdominal exam: Present: normal bowel sounds, soft - Extremities Exam Extremities exam: Present: normal inspection - Back Exam Back exam: Present: normal inspection - Neurological Exam Neurological exam: Present: alert, oriented X3 - Psychiatric Psychiatric exam: Present: normal affect, normal mood - Skin Skin exam: Present: normal color, warm Discharge Results Procedures and tests throughout hospitalization: Pending Orders 07/03/16 09:23 Red Blood Cells Leuko Red Routine DS: Provider Date of admission: 07/03/16 06:31 Primary care physician: . No PCP Attending physician on admission: Verito Sheldon MD Discharging clinician: Nimo Fraser CNM Expected date of discharge: 07/05/16
== END 2016-07-05 12:30 | disposition home or self-care (01) | DRG 743 ==
LOC: N.SDSINP 06:31 → N.OB 11:56
PROVIDERS: ADMIT Obstetrics & Gynecology; ATTEND Obstetrics & Gynecology

== ENCOUNTER 2016-12-17 10:23 | Observation (INO) ==
[2016-12-17] MEDS ORDERED: NITROGLYCERIN 2% OINT 1 INCH/GM PACK TOP STA (11:41)
[2016-12-17] MEDS ORDERED: MORPHINE 2 MG/1 ML SYRINGE IV STA (11:41)
[2016-12-17] MEDS ORDERED: ALUM/MAG/SIMETH/LIDO VISC 1:1 30 ML BOTTLE PO STA (11:41)
[2016-12-17] MEDS ORDERED: KETOROLAC 30 MG/1 ML VIAL IV STA (11:41)
[2016-12-17] MEDS ORDERED: ONDANSETRON 4 MG/2 ML VIAL IV STA (11:41)
[2016-12-17] MEDS ORDERED: ASPIRIN 325 MG TABLET PO STA (11:41)
[2016-12-17] MEDS ORDERED: METOPROLOL TARTRATE 25 MG TABLET PO STA (11:41)
[2016-12-17 12:27] LABS: Basophils % 0.1 % (0.0-0.8); Eosinophils # 0.2 10*3/uL (0.0-0.87); Eosinophils % 3.1 % (0.00-10.9); Hematocrit 34.8 VOL% (35.7-47.0); Hemoglobin 10.9 GM/DL (12.0-16.0); Immature Granulocytes % 0.3 %; Immature Granulocytes Absolute 0.02 #; Lymphocytes # 2.3 10*3/uL (1.4-4.0); Lymphocytes % 34.2 % (21.3-54.2); Mean Corpuscular HGB Conc 31.3 GM/DL (32-36); Mean Corpuscular Hemoglobin 24 PG (27-34); Mean Corpuscular Volume 76.8 FL (87-102); Mean Platelet Volume 9.8 FL (9.6-12.0); Monocytes # 0.4 10*3/uL (0.11-0.8); Monocytes % 6.5 % (1.7-12.7); Neutrophils # 3.7 10*3/uL (1.4-7.4); Neutrophils % 55.8 % (38.7-73.9); Platelet Count 380 T/CUMM (130-400); Red Blood Count 4.53 MC/CUMM (3.8-5.5); Red Cell Distribution Width 14.9 % (9.3-17.3); White Blood Count 6.7 T/CUMM (4-12)
[2016-12-17] MEDS ORDERED: ASPIRIN 325 MG TABLET ONE (12:27)
[2016-12-17] MEDS ORDERED: KETOROLAC 30 MG/1 ML VIAL ONE (12:27)
[2016-12-17] MEDS ORDERED: METOPROLOL TARTRATE 25 MG TABLET ONE (12:27)
[2016-12-17] MEDS ORDERED: ONDANSETRON 4 MG/2 ML VIAL ONE (12:27)
[2016-12-17] MEDS ORDERED: MORPHINE 2 MG/1 ML SYRINGE ONE (12:27)
[2016-12-17] MEDS ORDERED: NITROGLYCERIN 2% OINT 1 INCH/GM PACK TOP ONE (12:27)
[2016-12-17] MEDS ORDERED: ALUM/MAG/SIMETH/LIDO VISC 1:1 30 ML BOTTLE PO ONE (12:27)
[2016-12-17 12:37] LABS: INR 0.9
[2016-12-17 12:57] LABS: Alanine Aminotransferase 21 U/L (13-56); Albumin 3.6 G/DL (3.4-5.0); Alkaline Phosphatase 93 U/L (45-117); Aspartate Amino Transferase 19 U/L (0-37); Bilirubin,Total < 0.39 MG/DL (0.2-1.0); Blood Urea Nitrogen 16 MG/DL (7-18); Calcium 9.6 MG/DL (8.5-10.1); Glucose 97 MG/DL (74-106); Osmolality,Calculated 277.5 MOS/KG (273-304); Potassium 3.9 MMOL/L (3.5-5.1); Sodium 139 MMOL/L (136-145); Total Protein 8.4 G/DL (6.4-8.3)
[2016-12-17] MEDS ORDERED: ACETAMINOPHEN 325 MG TABLET PO PRN (17:10)
[2016-12-17] MEDS ORDERED: ONDANSETRON 4 MG/2 ML VIAL IV PRN (17:10)
[2016-12-17] MEDS ORDERED: INFLUENZA VIRUS VACCINE 0.5 ML SYRINGE IM ONE (18:46)
[2016-12-17 23:50] LABS: Troponin I Only < 0.015 NG/ML (0.00-0.045)
[2016-12-18 09:55] LABS: Calcium 9.1 MG/DL (8.5-10.1); Osmolality,Calculated 285.3 MOS/KG (273-304); Potassium 4.2 MMOL/L (3.5-5.1); Troponin I Only < 0.015 NG/ML (0.00-0.045)
[2016-12-18 10:01] LABS: Basophils % 0.2 % (0.0-0.8); Eosinophils # 0.2 10*3/uL (0.0-0.87); Eosinophils % 3.2 % (0.00-10.9); Hematocrit 33.2 VOL% (35.7-47.0); Hemoglobin 10.3 GM/DL (12.0-16.0); Immature Granulocytes % 0.5 %; Immature Granulocytes Absolute 0.03 #; Lymphocytes # 1.9 10*3/uL (1.4-4.0); Lymphocytes % 33.4 % (21.3-54.2); Mean Corpuscular Hemoglobin 24 PG (27-34); Mean Corpuscular Volume 77.6 FL (87-102); Mean Platelet Volume 10.1 FL (9.6-12.0); Monocytes # 0.4 10*3/uL (0.11-0.8); Monocytes % 6.4 % (1.7-12.7); Neutrophils # 3.2 10*3/uL (1.4-7.4); Neutrophils % 56.3 % (38.7-73.9); Platelet Count 362 T/CUMM (130-400); Red Blood Count 4.28 MC/CUMM (3.8-5.5); Red Cell Distribution Width 14.9 % (9.3-17.3); White Blood Count 5.6 T/CUMM (4-12)
[2016-12-18] MEDS: PANTOPRAZOLE 40 MG TABLET PO SCH (10:21)
[2016-12-18] MEDS ORDERED: NITROGLYCERIN SL 0.4 MG TABLET SL PRN (11:20)
[2016-12-18] MEDS: FERROUS SULFATE 325 MG TABLET PO SCH (21:45)
[2016-12-18] MEDS: IRON (CARBONYL)/VIT C/B12/FA TABLET PO SCH (21:45)
[2016-12-19] MEDS: PANTOPRAZOLE 40 MG TABLET PO SCH (16:10)
[2016-12-19] MEDS: IRON (CARBONYL)/VIT C/B12/FA TABLET PO SCH ×2 (16:10→21:54)
[2016-12-19] MEDS: FERROUS SULFATE 325 MG TABLET PO SCH ×2 (16:10→21:54)
[2016-12-20] MEDS: IRON (CARBONYL)/VIT C/B12/FA TABLET PO SCH (08:54)
[2016-12-20] MEDS: FERROUS SULFATE 325 MG TABLET PO SCH (08:54)
[2016-12-20] MEDS: PANTOPRAZOLE 40 MG TABLET PO SCH (08:54)
[2016-12-20 13:42] VITALS: BP 132/91
== END 2016-12-20 13:40 | disposition home or self-care (01) ==
LOC: N.EDINP 10:23 → N.ED 10:23 → N.EDINP 16:53 → N.4E 16:58 → SUATTDRO 12-19 15:16 → UNDODISIN 12-20 13:40
PROVIDERS: ADMIT Hospitalist; ATTEND Internal Medicine